=== PATIENT | male | born 1945 | race Caucasian/White ===

== ENCOUNTER 2018-04-18 07:04 | Day surgery (SDC) | payer MEDICARE ==
[~2018-04-18] VITALS: Ht 170.2 cm; Wt 95.2 kg
[~2018-04-18 07:04] MED LIST: AMLO5; Azor 10-40 MG1 EACH PO; BYSTOLIC; CITA20; CYCL10; CYCL10 PO; Citalopram HBr40 MG PO; HYDCHL25; HYDCHL25 PO; HYDROCHLOROTHIAZIDE; LIPITOR; LISI20; LISI20 PO; LORA.5; LORA.5 PO; LOVA20 PO; LOVA40 PO; Lovastatin20 MG PO; VALSARTAN
== END 2018-04-18 09:23 | disposition home or self-care (01) ==
LOC: ORSCSDS 07:04
PROVIDERS: Internal Medicine Gastroenterology
PROC: 0DBH8ZX Excision of Cecum, Via Natural or Artificial Opening Endoscopic, Diagnostic (ICD-10-PCS; principal; 2018-04-18 08:30)
DX: Z12.11 Encounter for screening for malignant neoplasm of colon (principal); Z86.010 Personal history of colon polyps; D12.0 Benign neoplasm of cecum; K57.30 Diverticulosis of large intestine without perforation or abscess without bleeding; K64.8 Other hemorrhoids; I10 Essential (primary) hypertension; E78.5 Hyperlipidemia, unspecified; E78.1 Pure hyperglyceridemia; G51.0 Bell's palsy; Z79.899 Other long term (current) drug therapy; G47.33 Obstructive sleep apnea (adult) (pediatric); Z87.891 Personal history of nicotine dependence
CPT/HCPCS: 88305; J7120